=== PATIENT | female | born 1995 | race Caucasian/White ===

== ENCOUNTER 2020-07-12 14:29 | Emergency (ER) | payer MEDICAID ==
[~2020-07-12] VITALS: Ht 154.9 cm; Wt 46.7 kg
[2020-07-12 15:09] VITALS: BP 122/71
[2020-07-12] MEDS ORDERED: PHEN177S30 PO (15:53)
[2020-07-12] MEDS ORDERED: IBUP-2213 PO (15:53)
[2020-07-12] MEDS ORDERED: PROM473S5 PO (15:53)
[2020-07-12 16:01] VITALS: BP 122/71
== END 2020-07-12 15:59 | disposition home or self-care (01) ==
LOC: MED 14:29
DX: J06.9 Acute upper respiratory infection, unspecified (principal)
CPT/HCPCS: 99283